=== PATIENT | female | born 1985 | race Caucasian/White ===

== ENCOUNTER 2020-11-06 19:22 | Emergency (ER) | payer SELFPAY ==
[~2020-11-06] VITALS: Ht 162.6 cm; Wt 52.0 kg
[2020-11-06 19:31] VITALS: BP 107/49
[2020-11-07 00:02] LABS: CLARITY URINE CLEAR (CLEAR); COLOR URINE YELLOW (YELLOW); KETONES URINE NEGATIVE (NEGATIVE); LEUKOCYTE ESTERASE URINE NEGATIVE (NEGATIVE); NITRITE URINE NEGATIVE (NEGATIVE); OCCULT BLOOD URINE NEGATIVE (NEGATIVE); PH URINE 7.5 (4.5-8.0); PROTEIN URINE NEGATIVE (NEGATIVE); SPECIFIC GRAVITY URINE 1.008 (1.005-1.030); UROBILINOGEN URINE 0.2 E.U./dL (0.2-1.0)
[2020-11-07] MEDS ORDERED: DOXY100C2 MT (01:30)
[2020-11-07] MEDS ORDERED: CEFTRIAXONE SODIUM 500 MG/VIAL IM ONE (01:30)
[2020-11-07] MEDS ORDERED: DOXYCYCLINE HYCLATE 100MG CAPSULE PO ONE (01:30)
[2020-11-07] MEDS ORDERED: METRONIDAZOLE 500MG TABLET PO ONE (01:30)
[2020-11-07] MEDS ORDERED: LIDOCAINE HCL 1% 20ML VIAL (Pyxis) INJ INFIL ONE (01:30)
== END 2020-11-07 01:53 | disposition home or self-care (01) ==
LOC: ER 19:22
DX: N89.8 Other specified noninflammatory disorders of vagina (principal); Z20.89 Contact with and (suspected) exposure to other communicable diseases; Z87.42 Personal history of other diseases of the female genital tract; Z98.51 Tubal ligation status
CPT/HCPCS: 81003; 81025; 87210; 96372; 99283; J0696; J3490

== ENCOUNTER 2020-11-27 16:59 | Emergency (ER) | payer MEDICAID ==
[~2020-11-27] VITALS: Ht 165.1 cm; Wt 64.0 kg
[~2020-11-27 16:59] MED LIST: DOXY100C2 MT
[2020-11-27 17:12] VITALS: BP 135/76
[2020-11-27] MEDS ORDERED: DIPHENHYDRAMINE 50MG/ML VIAL IM STA (17:20)
== END 2020-11-27 17:42 | disposition home or self-care (01) ==
LOC: ER 16:59
DX: T50.905A Adverse effect of unspecified drugs, medicaments and biological substances, initial encounter (principal); I10 Essential (primary) hypertension; Y92.9 Unspecified place or not applicable
CPT/HCPCS: 96372; 99283; J1200

== ENCOUNTER 2021-10-31 03:12 | Emergency (ER) | payer SELFPAY ==
[~2021-10-31] VITALS: Ht 160 cm; Wt 59.0 kg
[~2021-10-31 03:12] MED LIST changes: -DOXY100C2 MT; +DOXY100C5 MT
[2021-10-31] MEDS ORDERED: LORAZEPAM 1MG TABLET PO ONE (04:00)
[2021-10-31] MEDS ORDERED: LORAZEPAM 2MG/ML CPJ IM ONE (04:15)
[2021-10-31] MEDS ORDERED: HALOPERIDOL LACTATE 5MG/ML VIAL IM ONE (04:15)
[2021-10-31 04:40] LABS: CLARITY URINE CLEAR (CLEAR); COLOR URINE YELLOW (YELLOW); KETONES URINE NEGATIVE (NEGATIVE); LEUKOCYTE ESTERASE URINE NEGATIVE (NEGATIVE); NITRITE URINE NEGATIVE (NEGATIVE); OCCULT BLOOD URINE NEGATIVE (NEGATIVE); PH URINE 6.5 (4.5-8.0); PROTEIN URINE NEGATIVE (NEGATIVE); SPECIFIC GRAVITY URINE 1.012 (1.005-1.030); UROBILINOGEN URINE 0.2 E.U./dL (0.2-1.0)
[2021-10-31 04:48] LABS: *COCAINE SCREEN URINE NEGATIVE (NEGATIVE); METHADONE URINE SCREEN NEGATIVE (NEGATIVE)
[2021-10-31 04:49] LABS: *BARBITURATES SCREEN URINE NEGATIVE (NEGATIVE); *BENZODIAZEPINES SCREEN URINE NEGATIVE (NEGATIVE); OPIATES URINE SCREEN NEGATIVE (NEGATIVE); PHENCYCLIDINE URINE SCREEN NEGATIVE (NEGATIVE)
[2021-10-31 04:52] LABS: *AMPHETAMINES SCREEN URINE PRESUMTIVE POSITIVE (NEGATIVE)
[2021-10-31 04:53] LABS: CANNABINOID URINE SCREEN PRESUMTIVE POSITIVE (NEGATIVE)
[2021-10-31 09:40] VITALS: BP 119/70
== END 2021-10-31 09:40 | disposition home or self-care (01) ==
LOC: ER 03:54
DX: R45.850 Homicidal ideations (principal)
CPT/HCPCS: 80305; 81003; 81025; 96372; 99284; J1630; J2060